=== PATIENT | female | born 1975 | race African-American/Black ===

== ENCOUNTER 2022-03-06 11:30 | Emergency (ER) | payer OTHER ==
[~2022-03-06] VITALS: Ht 175.3 cm; Wt 73.0 kg
[2022-03-06] MEDS ORDERED: HYDROCODONE/ACETAMINOPHEN 5/325MG TABLET PO ONE (12:30)
[2022-03-06 12:56] VITALS: BP 158/79
[2022-03-06] MEDS ORDERED: DIATR MEGLU/DIATRIZOATE SOLN 30ML ONE (13:28)
[2022-03-06] MEDS ORDERED: IBUP-2029 MT (17:06)
[2022-03-06] MEDS ORDERED: METH-653 MT (17:06)
[2022-03-06] MEDS ORDERED: IBUPROFEN 600MG TABLET PO ONE (17:15)
== END 2022-03-06 17:29 | disposition home or self-care (01) ==
LOC: ER 12:27
DX: R07.89 Other chest pain (principal); R55 Syncope and collapse; R51.9 Headache, unspecified; R10.30 Lower abdominal pain, unspecified; V49.49XA Driver injured in collision with other motor vehicles in traffic accident, initial encounter; Y93.89 Activity, other specified; Y92.488 Other paved roadways as the place of occurrence of the external cause
CPT/HCPCS: 71250; 74176; 81025; 99284; Q9963